=== PATIENT | female | born 1955 | race Caucasian/White ===

== ENCOUNTER 2019-08-16 | Emergency (ER) | payer MEDICARE, OTHER ==
[2019-08-16] MEDS ORDERED: SYMBICORT 80-4.5MCG IN (06:03)
[2019-08-16] MEDS ORDERED: NORVASC2.5 M1 PO (06:03)
[2019-08-16] MEDS ORDERED: ASPIRIN 8181 MG PO (06:04)
[2019-08-16] MEDS ORDERED: EFFEXOR37.5 MG PO (06:04)
[2019-08-16] MEDS ORDERED: OMEPRAZOLE10 MG PO (06:05)
[2019-08-16 06:46] LABS: HEMATOCRIT 50.6 % (37.0-47.0); HEMOGLOBIN 16.4 g/dl (12.0-16.0); IMMATURE GRANULOCYTES 0.3 % (0.0-5.0); MEAN CELL VOLUME 91.5 fL CALC (80.0-100.0); MEAN CORPUSCULAR HGB 29.7 pG CALC (26.0-32.0); MEAN CORPUSCULAR HGB CONC 32.4 g/L CALC (32.0-36.0); NEUT# 4.81 thou/uL (2.00-7.15); RED BLOOD COUNT 5.53 mill/uL (4.20-5.60); RED CELL DISTRI WIDTH 12.7 % (11.5-15.5)
[2019-08-16 07:01] LABS: ALKALINE PHOSPHATASE 103 u/l (38-126); ANION GAP 12 (6-22 (CALC)); BILIRUBIN, TOTAL 0.5 mg/dL (0.0-1.4); BUN 20 mg/dL (8-23); BUN/CREATININE RATIO 28 (12-20 (CALC)); CARBON DIOXIDE 28 mmol/l (22-30); CHLORIDE 98 mmol/l (95-108); CREATININE 0.7 mg/dL (0.5-1.0); GFR > 60 ML/MIN (>=60 (CALC)); GFR FOR AFR.AMER. > 60 ML/MIN (>=60 (CALC)); POTASSIUM 3.9 mmol/l (3.5-5.1); SGOT/AST 32 u/l (9-36); SODIUM 135 mmol/l (137-146); TOTAL PROTEIN 6.9 g/dL (6.3-8.2)
[2019-08-16] MEDS ORDERED: FIORICET PO (08:01)
== END 2019-08-16 08:35 | disposition home or self-care (01) ==
PROVIDERS: Family Medicine
DX: R51 Headache (principal); I10 Essential (primary) hypertension